=== PATIENT | female | born 1990 | race African-American/Black ===

== ENCOUNTER 2024-11-28 14:48 | Inpatient (IN) | payer MEDICAID, OTHER, SELFPAY ==
[2024-11-28 15:00] VITALS: BP 142/86; BP 156/93; PULSE 75; PULSE 81; RESP 18; TEMP 36.4; O2SAT 98; O2SAT 99; BMI 56.7
--- NOTE | 2024-11-28 15:07 | ED_ITS ---
HPI - General Adult General Chief complaint: Psychiatric Symptoms Stated complaint: SEC 12,SI W/PLAN PER EMS Time Seen by Provider: 11/28/24 15:06 Source: patient and EMS Mode of arrival: EMS Limitations: no limitations History of Present Illness ED Provider: Azul Scott PA-C HPI narrative: Patient is a 34 year old assigned female at with a history of depression and psychiatric hospitalization - the most recent being on 09/13/2024 at [facility] presenting to the emergency department today with depression and suicidal ideation. Patient states that she is feeling more depressed and has plans to kill herself but isn't specific on what they are. Patient denies any other complaints at this time. Related Data Home Medications ?Medication ?Instructions ?Recorded ?Confirmed No Known Home Meds 11/29/24 11/29/24 Allergies Allergy/AdvReac Type Severity Reaction Status Date / Time No Known Allergies Allergy Verified 11/28/24 15:15 Review of Systems 2 Constitutional: Constitutional: Reports as per HPI Eyes: Eyes: Reports as per HPI ENT: Reports as per HPI Cardiovascular: Cardiovascular: Reports as per HPI Respiratory: Respiratory: Reports as per HPI Gastrointestinal: Gastrointestinal: Reports as per HPI Genitourinary: Genitourinary: Reports as per HPI Musculoskeletal: Musculoskeletal: Reports as per HPI Integumentary/Breasts: Skin/Breast: Reports as per HPI Neurologic: Reports as per HPI Psychiatric: Psychiatric: Reports as per HPI Endocrine: Endocrine: Reports as per HPI Hematologic/Lymphatic: Hematologic/Lymphatic: Reports as per HPI Allergic/Immunologic: Allergic/Immunologic: Reports as per HPI [facility] Past Medical History Attestation statement: The following information was validated with the patient. Source: old records reviewed and nursing notes reviewed Social History Social History Household Members: None Housing: Apartment Do you presently have visiting nurse or other home services: No Patient Tobacco Use Status: Never used Tobacco Smoked in Last 30 Days: No e-Cigarette/Vaping Use: Never Used Use of substances other than those prescribed or required for medical reasons: No Have you been hit, kicked, punched, or otherwise hurt by someone within the past year? If so, by whom?: No Do you feel safe in your current relationship?: No Current Relationship Is there a partner from a previous relationship who is making you feel unsafe now?: No Are you made to feel afraid or neglected: No Advance Directives: No Advance Directives Information Provided: No Do you have a plan to hurt others: No Plan Recently lost weight without trying: No How much weight loss: Not applicable Eating poorly because of decreased appetite: No Nutrition screen score: 0 Nutrition Risks: No Nutritional Risk Patient : No : No Poor oral hygiene: No Physical Exam ED Vital Signs: Vital Signs - 24 hr 11/28/24 15:00 Temperature 97.5 F Pulse Rate 81 Respiratory Rate 18 Blood Pressure 156/93 H Pulse Oximetry 99 Oxygen Delivery Method Room Air BMI result Body Mass Index 56.7 Const General: cooperative, no acute distress, alert and awake Nutritional Appearance: well nourished Orientation/consciousness: patient oriented x3 HENMT Head: Yes normal to inspection and Yes atraumatic Ears: hearing grossly normal bilaterally and external ears normal General nose exam: Normal external nose present, no nasal discharge noted and no epistaxis Face and sinus: Yes normal facial exam, No abrasion and No laceration Mouth: Normal oral and palatal mucosa present, no drooling and no muffled voice Eyes General: appearance normal, both eyes and all related structures Periorbital: periorbital findings normal Eyelids: Yes eyelids normal Conjunctivae: conjunctivae normal Pupils: Equal, round and reactive pupils present EOM: EOMs intact bilaterally Neck Neck: Yes normal visual inspection and Yes full ROM Resp Effort & Inspection: normal respiratory effort and able to speak in complete sentences Neuro General: patient oriented x3, moves all extremities and CN's II-XI intact bilaterally Cranial nerves: Yes Equal, round and reactive pupils present Cognition (Neuro): normal cognition Extrem General: Yes normal to inspection, Yes full ROM and Yes capillary refill normal Psych Appearance: grossly normal Mental Status: mental status grossly normal Affect: normal affect Thought content: Suicidality present Course Reevaluation(s) Reevaluation #1: 11/28/2024 Matt Salas 2:52pm: Patient was given Ativan and Benadryl due to her feeling anxious and angry. Patient became, after meds. Reevaluation #2: DR. Davis's progress note, 11/29/2024: 09:30. VSS, no events overnight reported by nursing, under section 12, bed search is underway, continue with physician observation. Reevaluation #3: DR. Davis's progress note, 11/29/2024; Discontinue physician observation now patient is admitted to 5 Time: 13:31 Medications Administered Discontinued Medications Generic Name Dose Route Start Last Admin Trade Name Juan PRN Reason Stop Dose Admin Diphenhydramine HCl 50 mg 11/28/24 22:13 11/28/24 22:29 Diphenhydramine Hcl 25 Mg Capsule PO 11/28/24 22:14 50 mg ONCE ONE Administration Lorazepam 1 mg 11/28/24 18:56 11/28/24 19:38 Lorazepam 1 Mg Tablet PO 11/28/24 18:57 1 mg ONCE ONE Administration Lorazepam 1 mg 11/28/24 22:13 11/28/24 22:29 Lorazepam 1 Mg Tablet PO 11/28/24 22:14 1 mg ONCE ONE Administration Medical Decision Making Medical Decision Making MDM Narrative: Patient is a 34 year old assigned female at with a history of depression and psychiatric hospitalization - the most recent being on 09/13/2024 at [facility] presenting to the emergency department today with depression and suicidal ideation. Patient's physical exam was as noted in the physical exam portion of this note. Patient's blood work is pending. Patient signed out to RACIEL Gutierrez pending lab results and CARE team recommendations. Differential Diagnosis Differential Diagnoses: The differential diagnosis associated with the presentation includes SI Depression Admission/Observation Consideration of admission/observation: Escalation of care including admission/observation considered Patient's disposition will be determined after lab work and CARE team evaluation Lab Data MDM Lab Attestation statement: I reviewed the patient's lab results. My interpretation of these studies and their corresponding values is that they are grossly normal. 11/28/24 17:07 11/28/24 17:07 Labs: Lab Results 11/28/24 11/28/24 Range/Units 15:49 17:07 WBC 9.4 (4.8-10.8) X10*3/uL RBC 4.51 (4.20-5.50) X10*6/uL Hgb 12.5 (12.0-16.0) g/dl Hct 36.0 L (37.0-47.0) % MCV 79.8 L (80.0-98.0) fL MCH 27.7 (27.0-33.0) pg MCHC 34.7 (31.0-35.0) g/dl RDW 12.9 (11.0-16.0) % Plt Count 291 (160-400) X10*3/uL MPV 12.2 (9.4-12.3) fL Immature Gran % (Auto) 0.3 (0.0-0.4) % Neut % (Auto) 68.1 (45-73) % Lymph % (Auto) 22.3 (20-40) % [place] % (Auto) 6.4 (2-11) % Eos % (Auto) 2.6 (0-4) % Baso % (Auto) 0.3 (0-2) % Lymph # (Auto) 2.1 (1.2-4.9) X10*3/uL [place] # (Auto) 0.6 (0.1-1.2) X10*3/uL Eos # (Auto) 0.2 (0.0-0.4) X10*3/uL Baso # (Auto) 0.0 (0.0-0.2) X10*3/uL Abs Immat Gran (auto) 0.03 (0.00-0.03) X10*3/uL Absolute Neuts (auto) 6.4 (2.0-8.3) x10*3/uL Absolute Nucleated RBC 0.000 (0.0-0.012) X10*3/uL Nucleated RBC % (auto) 0.0 (0.0-0.2) /100WBC Sodium 139 (135-145) mmol/L Potassium 4.0 (3.3-5.1) mmol/L Chloride 109 H (96-108) mmol/L Carbon Dioxide 21 L (22-29) mmol/L Anion Gap 13 (12-20) BUN 8 L (9-16) mg/dL Creatinine 0.84 (0.5-1.4) mg/dL Estim Creat Clear Calc 125.0 Estimated GFR > 60 Random Glucose 83 (60-115) mg/dL Calcium 9.2 (8.4-10.2) mg/dL Total Bilirubin 0.5 (0.0-1.0) mg/dL AST 31 (5-31) U/L ALT 16 (0-31) U/L Alkaline Phosphatase 76 (39-117) U/L Total Protein 7.8 (6.5-8.0) g/dL Albumin 4.4 (3.5-5.0) g/dL Urine Color Yellow Urine Appearance Clear Urine pH 6.0 (5.0-9.0) Ur Specific [place] 1.010 (1.005-1.025) Urine Protein Negative (Neg-Trace) mg/dL Urine Glucose (UA) Negative (Negative) mg/dL Urine Ketones Negative (Negative) mg/dL Urine Blood Negative (Negative) Urine Nitrite Negative (Negative) Ur Leukocyte Esterase Small (1+) H (Negative) Urine RBC 0-2 (0-2) /HPF Urine WBC 6-10 H (0-5) /HPF Ur Squamous Epith Cells 6-10 (0-2) /HPF Urine Bacteria None Seen (None Seen) Hyaline Casts 0-2 (0-2) /LPF Urine Test NEGATIVE (NEGATIVE) Salicylates < 5.0 L (15-30) mg/dL Urine Opiates Screen Not Detected (Not Detect) Ur Buprenorphine Scrn Not Detected (Not Detect) ng/mL Ur Oxycodone Screen Not Detected (Not Detect) ng/mL Urine Methadone Screen Not Detected (Not Detect) ng/mL Urine Fentanyl Screen Not Detected (Not Detect) Acetaminophen < 3 (<30) mcg/mL Ur Barbiturates Screen Not Detected (Not Detect) Ur Phencyclidine Scrn Not Detected (Not Detect) Ur Amphetamines Screen Not Detected (Not Detect) U Benzodiazepines Scrn Not Detected (Not Detect) Urine Cocaine Screen Not Detected (Not Detect) U Marijuana (THC) Screen Not Detected (Not Detect) Ethyl Alcohol 11 mg/dL Independent Historian Clinical information obtained from an independent historian. History obtained from or confirmed by: EMS (EMS provided additional history and confirmed the history provided by the patient. ) Discharge Plan Discharge Clinical Impression: Depression Patient Disposition: Admitted As Inpatient Interventions: [place]-Suicide Risk Severity Scale Last Done: 11/29/24 16:00 Admission Worksheet (ED) Last Done: 11/29/24 13:28 Discharge Date/Time: 11/29/24 13:29
--- NOTE | 2024-11-28 15:20 | MHC.EDTECH ---
pt BIBA. Tech and security present in family waiting room. Patient changed over and belongings searched by security. Pt tearful but cooperative. Belongings secured in Locker 3
[2024-11-28 16:06] LABS: Appearance Urine Clear; Glucose Urine UA Negative (Negative); PH 6.0 (5.0-9.0); Specific Gravity - Urine 1.010 (1.005-1.025); UMIC TRIGGER UA YES
[2024-11-28 16:15] LABS: Cannabinoid Screen Urine Not Detected (Not Detect)
[2024-11-28 16:24] LABS: UPreg QC Valid YES
[2024-11-28 17:13] LABS: MANUAL DIFF FLAG NO
[2024-11-28 17:15] LABS: Hematocrit 36.0 % (37.0-47.0); Hemoglobin 12.5 g/dl (12.0-16.0); Imm Gran Abs Auto 0.03 X10*3/uL (0.00-0.03); Imm Gran Pct Auto 0.3 % (0.0-0.4); Lymphocytes Absolute Auto 2.1 X10*3/uL (1.2-4.9); Mean Corpuscular HGB Conc 34.7 g/dl (31.0-35.0); Mean Corpuscular Hemoglobin 27.7 pg (27.0-33.0); Mean Corpuscular Volume 79.8 fL (80.0-98.0); NRBC Abs Auto 0.000 X10*3/uL (0.0-0.012); NRBC Pct Auto 0.0 /100WBC (0.0-0.2); Platelet Count 291 X10*3/uL (160-400); Red Blood Count 4.51 X10*6/uL (4.20-5.50); White Blood Count 9.4 X10*3/uL (4.8-10.8)
[2024-11-28 17:31] LABS: Alanine Aminotransferase 16 U/L (0-31); Albumin Level 4.4 g/dL (3.5-5.0); Alkaline Phosphatase 76 U/L (39-117); Anion Gap 13 (12-20); Aspartate Amino Transferase 31 U/L (5-31); Blood Urea Nitrogen 8 mg/dL (9-16); Calcium 9.2 mg/dL (8.4-10.2); Carbon Dioxide 21 mmol/L (22-29); Chloride 109 mmol/L (96-108); Creatinine Clr Calc Pharmacy 125.0; Estimated Glomerular Filt Rate > 60; Potassium 4.0 mmol/L (3.3-5.1); Sodium 139 mmol/L (135-145); Total Protein 7.8 g/dL (6.5-8.0)
[2024-11-28 17:35] LABS: Acetaminophen LAB < 3 mcg/mL (<30); Salicylate < 5.0 mg/dL (15-30)
--- NOTE | 2024-11-28 18:00 | MHC.CARE ---
Pt will be adult IPLOC, Section 12a in chart for safety.
--- OUTSIDE RECORDS SUMMARY | 2024-11-28 18:51 | XMS_ITS | Clinical Summary ---
Author Organization [employer] Address [address] [place] [address] Care Team Providers Care Hide Trimmer Name Role Phone Unavailable Primary Care Provider Unavailabl e Encounters Date Type Department Care Team Description 11/17/2024 Population Health Risk Score [facility] ([facility]) Department [address] [id number] Provider, Population Health Generic from Last 3 Months Social History Tobacco Use Types Packs/Day Years Used Date Smoking Tobacco: Never Assessed Comments Unknown Sex and Gender Information Value Date Recorded Sex Assigned at Not on file Legal Sex Female 9:33 PM EDT Gender Identity Not on file Sexual Orientation Not on file Plan of Treatment Health Maintenance Due Date Last Done Comments Depression Screening 1991 HIV Screening 1991 SDOH Screening 1991 Disability Screening 1991 Alcohol/Substance Use Screening 2003 Tobacco Screening 2003 Family Planning (PISQ) 2006 HPV Vaccines (1 - 3-dose series) 2006 Hepatitis C Screening 2009 Hepatitis B Vaccines (1 of 3 - 19+ 3-dose series) 2010 Pap Smear 01/12/2012 Cervical Cancer Screening 2021 HPV/Cotest 2021 COVID-19 Vaccine (1 - 2023-2 5 season) 2024 Influenza Vaccine (#1) 2024 DTaP/Tdap/Td Vaccines (2 - T d or Tdap) 08/13/2025 08/14/2015 Zoster Vaccines (1 of 2) 2041 RSV Patients and Pa tients Aged 60 years or older (1 - 1-dose 75+ series) 2066 HIB Vaccines Aged Out No longer eligi ble based on patient's age to complete this topic Hepatitis A Vaccines Aged Out No long er eligible based on patient's age to complete this topic IPV Vaccines Aged Out No longer eligi ble based on patient's age to complete this topic Meningococcal B Vaccine Aged Out No l onger eligible based on patient's age to complete this topic Meningococcal Vaccine Aged Out No enrico kevin eligible based on patient's age to complete this topic Pneumococcal Vaccine: Pediat rics (0 to 5 Years) and At-Risk Patients (6 to 49) Years Aged Out No longer eligi ble based on patient's age to complete this topic RSV under 20 months Aged Out No longe r eligible based on patient's age to complete this topic Rotavirus Vaccines Aged Out No longer eligible based on patient's age to complete this topic
--- NOTE | 2024-11-28 20:58 | PC.NURSE ---
Assumed care of pt at 1900. PT was found angry in distress reporting she wanted to hurt herself . PT was given her PRN medication and was deescalated with calming techniques and given headphones, pt reported that the music helped calm herself down. PT admitted to denied HI. Plan for bed search in progress.
--- NOTE | 2024-11-28 22:33 | PC.NURSE ---
PT reported anger and feelings of wanting to hurt things notified provider, PRN meds administered per MAR. PT was calm and cooperative and stated feeling angry still.
--- NOTE | 2024-11-29 08:13 | ECG_ITS ---
Test Reason : qtc check Blood Pressure : */* mmHG Vent. Rate : 71 BPM Atrial Rate : 71 BPM P-R Int : 166 ms QRS Dur : 70 ms QT Int : 382 ms P-R-T Axes : 58 46 34 degrees QTcB Int : 415 ms Normal sinus rhythm Normal ECG No previous ECGs available Referred By: Carol Swanson Electronically Signed By: Chuck Fox
--- NOTE | 2024-11-29 10:21 | MHC.EDTECH ---
patient refused EKG at this time
[2024-11-29 13:25] VITALS: BP 164/84; PULSE 91; RESP 16; TEMP 36.7; O2SAT 99
[2024-11-29 14:24] VITALS: BP 171/104; PULSE 104; RESP 18; TEMP 36.4; O2SAT 97
[2024-11-29 14:25] VITALS: BMI 51.0
--- NOTE | 2024-11-29 16:31 | PC.NURSE ---
Pt declined to receive the flu shot
--- NOTE | 2024-11-29 17:41 | PC.ADMIT ---
Patient was admitted from the ED POD on a 12b for tx of Unspecified Depressive Disorder. Pt was admitted after making suicidal statements to a international bank manager, when being asked how she was. Pt reported SI with a plan and feelings of hopelessness secondary to the loss of her job, along with other life stressors. Upon admission, pt's speech is monotone, though she is pleasant and cooperative with the admission assessment, with clear and linear thought process. She reports her mood is depressed but is able at times to make jokes and laugh w/staff. Per report from ED nurse, (along with the pt herself), she has a hx of low frustration tolerance. She continues to endorse SI, denies any current plan but sates Honestly being here is just prolonging my plans. I'm sorry because maybe if I came here sooner I'd be more receptive to the help, but I'm not changing my mind . Pt reports trauma r/t recent inpatient stay at another hospital (declined to elaborate fully), also reports hx of SI attempts but they were never successful . Denies any issues with appetite but occasional difficulty with sleeping at night. She has no current outpatient providers, insurance or medications. Her tox screen was negative, BAL 11. Skin check was unremarkable, placed on 15 minute checks.
--- NOTE | 2024-11-29 18:27 | PC.NURSE ---
Pt approached the nurses station this evening reporting intensifying thoughts of wanting to hurt herself. TW asked the pt what she needed from staff. PT initially shrugged. Declined to talk with staff, declined to sit in the milieu with peers and to write down feelings. Offered an accepted headphones. call center representative Provider Cesario Miller was notified and asked via tiger text to place pt on 5 minute checks.
--- NOTE | 2024-11-29 18:39 | P.HPPS_ITS ---
HPI Date of Service: 11/29/24 Chief Complaint: Depression, SI Sources of Information: patient interviewed, chart reviewed and crisis/core team assessment reviewed HPI Subjective Notes: Section 12B Narrative: Ms. Beverly is a 34 yo SF with h/o depression, anxiety, and multiple prior psychiatric admissions who was brought to the ED by ambulance after endorsing SI with a plan, subsequently admitted to for safety and stabilization. Pt reports a life long h/o depression. She was hospitalized 2x at [facility] from July-August for depression, SI and HI after she had major stressors with her health insurance (states that the words Mayi Zhaopin and [facility] are major triggers for her). She states that her experience at [facility] was very stressful and further traumatized her. She reports that October was a good month since she attended 3 concerts, which are very calming for her. 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 She had worked there x 5 yrs, got no warning and received 2 wks pay as a severance package. She thought her employer was retaliating against her for using FMLA for the [facility] hospitalizations but found out that other co-workers were also laid off. She is very stressed about her finances and is already behind on rent. She went to an [employer] to take out monehy to try to buy a new car with the severence money but the machine ate her card and she had to pay for another day of her rental car. When the blood bank laboratory professional asked how she was, she said I m suicidal and the police were called. Pt reports that she loves her cat, which kept her from harming herself. -Pt endorses chronic SI. Psychiatric ROS: Endorses signif trauma hx + flashbacks, anger outburts, having multiple triggers, hypervigilance, avoidance behaviors, nightmares, poor sleep, chronic depression, nightmares Avril screen- did not describe discrete mood episodes suggestive of avril Perception: She thinks she hears people in the house when she's alone and in a vulnerable situation, bernard in the shower. She has seen and heard her cat. She hears her own voice in her head saying you're too stupid to and other derogatory comments. She used to want to kill that bitch but decided to befriend her and it's less bothersome now. She hears the voices of other people that she made up in her head, which is usually calming. Good appetite Sleep- has been better than usual lately. Has woken up choking (attributes to nightmares) and w/ dry mouth. Denies ever having a sleep study Meds- Pt reports that she is currently only taking Ibuprofen Pt agreed to sign a CV but stated that she wanted to sign a 3-day right after, so t/w didn't have her sign the CV and kept her on the 12B Past Psychiatric History: No current therapist or psychiatrist Prior Med Trials: Seroquel- excessive daytime sedation, trazodone, anxiety med (can't recall), Prozac- rx'd for anger but made her more angry h/o multiple inpatient psychiatric admissions -Endorses multiple self harming beahviors and h/o suicide attempts by cutting, scratching, slamming her head into the wall, hitting herself with objects, punching/stabbing/choking herself, and sticking objects into sockets. She used to wet the bed and tried to harm herself by sitting in the acidic urine. -Pt denies HI but does have thoughts to harm others who have harmed her Medical Evaluation Reviewed: Hospitalist Louis Pending [facility] Narrative: Denies Family History: Sister- h/o inpt psychiatric admission. Mother a little bipolar , possible MDD and schizophrenia Social History: Lives at home w/ her cat. Single, no children. Substance History: Drinks alcohol rarely. Denies smoking cigarettes, MJ or abusing any illicit or rx drugs Trauma History: Endorses h/o trauma, did not go into details Diagnostics Vital Signs (24Hr): Vital Signs - 24 hr 11/29/24 13:25 11/29/24 14:24 Temperature 98.1 F 97.6 F Pulse Rate 91 104 H Respiratory Rate 16 18 Blood Pressure 164/84 H 171/104 H Pulse Oximetry 99 97 Oxygen Delivery Method Room Air Room Air BMI result Body Mass Index 51.0 Labs 11/28/24 17:07 11/28/24 17:07 Labs: Laboratory Results - last 48 hr 11/28/24 11/28/24 15:49 17:07 WBC 9.4 RBC 4.51 Hgb 12.5 Hct 36.0 L MCV 79.8 L MCH 27.7 MCHC 34.7 RDW 12.9 Plt Count 291 MPV 12.2 Immature Gran % (Auto) 0.3 Neut % (Auto) 68.1 Lymph % (Auto) 22.3 [place] % (Auto) 6.4 Eos % (Auto) 2.6 Baso % (Auto) 0.3 Lymph # (Auto) 2.1 [place] # (Auto) 0.6 Eos # (Auto) 0.2 Baso # (Auto) 0.0 Abs Immat Gran (auto) 0.03 Absolute Neuts (auto) 6.4 Absolute Nucleated RBC 0.000 Nucleated RBC % (auto) 0.0 Sodium 139 Potassium 4.0 Chloride 109 H Carbon Dioxide 21 L Anion Gap 13 BUN 8 L Creatinine 0.84 Estim Creat Clear Calc 125.0 Estimated GFR > 60 Random Glucose 83 Calcium 9.2 Total Bilirubin 0.5 AST 31 ALT 16 Alkaline Phosphatase 76 Total Protein 7.8 Albumin 4.4 Urine Color Yellow Urine Appearance Clear Urine pH 6.0 Ur Specific [place] 1.010 Urine Protein Negative Urine Glucose (UA) Negative Urine Ketones Negative Urine Blood Negative Urine Nitrite Negative Ur Leukocyte Esterase Small (1+) H Urine RBC 0-2 Urine WBC 6-10 H Ur Squamous Epith Cells 6-10 Urine Bacteria None Seen Hyaline Casts 0-2 Urine Test NEGATIVE Salicylates < 5.0 L Urine Opiates Screen Not Detected Ur Buprenorphine Scrn Not Detected Ur Oxycodone Screen Not Detected Urine Methadone Screen Not Detected Urine Fentanyl Screen Not Detected Acetaminophen < 3 Ur Barbiturates Screen Not Detected Ur Phencyclidine Scrn Not Detected Ur Amphetamines Screen Not Detected U Benzodiazepines Scrn Not Detected Urine Cocaine Screen Not Detected U Marijuana (THC) Screen Not Detected Ethyl Alcohol 11 EKG EKG: reviewed Meds/Allergies Meds Home Medications ?Medication ?Instructions ?Recorded ?Confirmed ?Type No Known Home Meds 11/29/24 11/29/24 Hi story Allergies Allergies Allergy/AdvReac Type Severity Reaction Status Date / Time No Known Allergies Allergy Verified 11/28/24 15:15 Mental Status Exam Mental Status Exam Narrative: Appearance: Wearing hospital kathy. Grooming/hygiene wnl. Good eye contact Attitude:Cooperative Speech: Excessive but redirectable. Fluent and otherwise wnl Motor activity: Calm and without any tics, tremors or dyskinesias. Steady gait Mood: as noted above Affect: appropriate, reactive Thought process: Logical, generally goal directed. perseverated on issues at [facility] Thought content: endorses SI without current plan/intent. Endorses thoughts to harm people who have harmed her. Denies HI Perception: Denies AH/VH and does not appear to respond to internal stimuli Alert/oriented in all spheres Cognition grossly intact Insight: intact Judgment: fair Assessment & Plan Assessment & Plan (1) MDD (major depressive disorder), recurrent episode, moderate: Status: Acute Code(s): F33.1 - Major depressive disorder, recurrent, moderate (2) PTSD (post-traumatic stress disorder): Status: Acute Code(s): F43.10 - Post-traumatic stress disorder, unspecified Plan Ms. Beverly is a 34 yo SF with h/o depression, anxiety, and multiple prior psychiatric admissions who was brought to the ED by ambulance after endorsing SI with a plan, subsequently admitted to for safety and stabilization. T/W reviewed my impression that pt has PTSD, which can be associated with persistent depression, difficulty in relationships/trusting others, hypervigilance, and mood lability (including angry outbursts). She presents w/ some BPD traits as well. Plan: Admit to for safety and stabilization Legal Status: 12B- pt was going to sign CV but wanted to sign 3-day immediately after. 12B will 12/04 Request admission medical consult from hospitalist 15 min safety checks Vital signs per unit standard Milieu therapy Meds- Pt is agreeable w/ trying risperidone off-label to target anxiety/agitation/anger- 0.5 mg qhs, 0.25 mg bid prn for anxiety/mild agitation, 1 mg bid prn for severe agitation. Will add benadryl prn for EPS Will start clonidine 0.1 mg off-label for PTSD-related hyperarousal sx, including nightmares. Trazodone 50-100 mg qhs prn for insomnia Reviewed med r/b/a Patient educated on: diagnosis, medication risk/benefits and therapeutic strategies Informed Consent: understands Reason for continued inpatient stay Substantial Risk for: harm to self and med/psych decompensation Statement Statement: I have reviewed the history and physical and performed a pertinent examination on my patient. No changes have occurred unless specified. If the History and Physical was not performed prior to admission, the Hospitalist's service will be consulted for completing the admission physical. Time Spent With Patient Time: Total time managing care of this patient today __80__ minutes.
[2024-11-29 19:16] VITALS: BP 140/100; PULSE 105; RESP 18; TEMP 36.2; O2SAT 99
[2024-11-29 20:00] VITALS: BP 150/61; PULSE 111; RESP 16; TEMP 36.6; O2SAT 97
[2024-11-29 20:18] VITALS: BP 150/61
[2024-11-30 07:00] VITALS: BMI 51.0
--- NOTE | 2024-11-30 09:11 | HO.PM.IMCN ---
History of Present Illness Data of Consult Service Date: 11/30/24 Primary Care Provider: [facility] Reason for consult: Medical consult 34-year-old female with a past medical history of MDD, PTSD and previous psychiatric hospitalizations to the ED with increased depression and suicidal ideation with no plan. CBC was without leukocytosis or anemia. No electrolyte imbalances or evidence of liver kidney injury. Urine was negative for infection, tox screen negative. No EtOH. On exam she denies any medical concerns. Her blood pressure is elevated. Review of Systems Review of Systems: Denies any shortness of breath, chest pain, palpitations, dizziness, lightheadedness, headaches, dysuria, abdominal pain or discomfort, nausea, vomiting or diarrhea. Denies chills or fever. [facility] Social History Household Members: None Housing: Apartment Do you presently have visiting nurse or other home services: No Patient Tobacco Use Status: Never used Tobacco Smoked in Last 30 Days: No e-Cigarette/Vaping Use: Never Used Use of substances other than those prescribed or required for medical reasons: No Currently Displaying Signs/Symptoms of Drug Intoxication Withdrawal: No Have you been hit, kicked, punched, or otherwise hurt by someone within the past year? If so, by whom?: No Do you feel safe in your current relationship?: No Current Relationship Is there a partner from a previous relationship who is making you feel unsafe now?: No Are you made to feel afraid or neglected: No Advance Directives: No Advance Directives Information Provided: No Do you have thoughts of harming others: None Do you have a plan to hurt others: No Plan Recently lost weight without trying: No How much weight loss: Not applicable Eating poorly because of decreased appetite: No Nutrition screen score: 0 Nutrition Risks: No Nutritional Risk Patient : No : No Poor oral hygiene: No service: No Sexual orientation: Don't Know Meds Allergies Allergy/AdvReac Type Severity Reaction Status Date / Time No Known Allergies Allergy Verified 11/28/24 15:15 Active Medications: Current Medications Acetaminophen (Acetaminophen 325 Mg Tablet) 650 mg PO Q6H PRN PRN Reason: Headache/Pain, Scale 1-10 Al Hydroxide/Mg Hydroxide (Magnesium Hydrox/Alum Hydrox 30 Ml Oral.Susp) 30 ml PO Q6H PRN PRN Reason: Heartburn/Nausea Clonidine HCl (Clonidine Hcl 0.1 Mg Tablet) 0.1 mg PO BEDTIME VIC; Protocol Last Admin: 11/29/24 20:18 Dose: 0.1 mg Diphenhydramine HCl (Diphenhydramine Hcl 25 Mg Capsule) 50 mg PO Q6H PRN PRN Reason: Extrapyramidal Effects Last Admin: 11/29/24 20:17 Dose: 50 mg Hydroxyzine HCl (Hydroxyzine Hcl 25 Mg Tablet) 25 mg PO Q6H PRN PRN Reason: mild anxiety Last Admin: 11/29/24 21:46 Dose: 25 mg Magnesium Hydroxide (Milk Of Magnesia 30 Ml Oral.Susp) 30 ml PO DAILY PRN PRN Reason: Constipation Nicotine Polacrilex (Nicotine Polacrilex 2 Mg Gum) 2 mg BUCCAL Q2H PRN PRN Reason: Nicotine Cravings Risperidone (Risperidone 0.5 Mg Tablet) 0.5 mg PO BEDTIME VIC Last Admin: 11/29/24 20:20 Dose: 0.5 mg Risperidone (Risperidone 0.25 Mg Tablet) 0.25 mg PO TID PRN PRN Reason: anxiety, mild agitation Risperidone (Risperidone 1 Mg Tablet) 1 mg PO BID PRN PRN Reason: severe agitation Last Admin: 11/29/24 20:19 Dose: 1 mg Trazodone HCl (Trazodone Hcl 50 Mg Tablet) 50 mg PO BEDTIME MRX1 PRN PRN Reason: Insomnia Last Admin: 11/29/24 21:46 Dose: 50 mg Home Medications ?Medication ?Instructions ?Recorded ?Confirmed ?Last Taken ?Type No Known Home Meds 11/29/24 11/29/24 Unknown History Physical Exam Vital Signs and Narrative: Vital Signs: Last Vital Signs Temp 97.8 F 11/29/24 20:00 Pulse 111 H 11/29/24 20:00 Resp 16 11/29/24 20:00 BP 150/61 H 11/29/24 20:18 Pulse Ox 97 11/29/24 20:00 O2 Del Method Room Air 11/29/24 20:00 BMI result Body Mass Index 51.0 CONST: Alert and oriented, in NAD. Well nourished HEENT: Normocephalic, atraumatic, MMM, Eyes clear, Neck supple RESP: Lungs clear, RRR even and regular HEART:,RRR, S1, S2. No edema GI:Abdomen Soft NT, ND. + BS times four :Deferred SKIN: Warm dry and intact, no visible lesions or rashes NEURO:CN II-XII Intact bilaterally, Sensation intact. Speech clear PSYCH: Normal affect Results Labs 11/28/24 17:07 11/28/24 17:07 Assessment and Plan (1) Morbid obesity with body mass index (BMI) greater than or equal to 50: Status: Acute (2) HTN (hypertension): Status: Acute Plan 34-year-old female with a past medical history of morbid obesity, major depressive disorder, PTSD presented to the ED with suicidal ideation. Admitted for stabilization. Morbid obesity/major depressive disorder Treatment per psychiatric team Hypertension Patient with several elevated blood pressures Will start hydrochlorothiazide 12.5 mg daily Follow up BMP Wednesday Morbid obesity Encouraged diet and exercise Thank you for allowing me to participate in the care of this patient. Will follow with you, please notify medical provider with any changes in condition or concerns.
[2024-11-30 10:30] VITALS: BP 152/100; PULSE 107; RESP 17; TEMP 36.4; O2SAT 100
[2024-11-30 12:31] VITALS: BP 140/101
[2024-11-30 19:12] VITALS: BP 134/90; PULSE 82; RESP 16; TEMP 36.2; O2SAT 100
--- NOTE | 2024-11-30 19:50 | P.PNPSP_ITS ---
Subjective Subjective Date of Service: 11/30/24 Reason For Visit: Depression, SI Interim History: chart reviewed, case discussed with tx team Pt was placed on 5 min safety checks last night after telling her nurse that she had increasing thoughts of self harm. She did not engage in any self harming behavior. She has been hypertensive and was started on HCTZ by the hospitalist today. T/W discussed the HTN w/ pt and she said she hoped she would from the high BP; however she agreed w/ treating it. When asked about SI, pt asked are you kidding? ... I'm chronically suicidal . She reports that she's angry here since you picked me up and brought me here and she needs to care for her cat. She reports that someone can come to the house to feed the cat tonight but she needs to give them her keys. She does report sleeping well last night, no nightmares and decreased anxiety. She denies any issues w/ the risperidone or clonidine (both new meds). Mental Status Exam Mental Status Exam Narrative: Appearance: Grooming/hygiene wnl. Generally avoidant eye contact. Attitude: Cooperative with interview. help seeking/rejecting Speech: Fluent and wnl in regard to volume, tone, prosody Motor activity: Calm and without any tics, tremors or dyskinesias. Steady gait Mood: as noted above Affect: appropriate, constricted, irritable during interview. Brighter affect in the milieu Thought process: goal directed and without evidence of formal thought disorder Thought content: as noted above. Perception: Denies AH/VH and does not appear to respond to internal stimuli Alert/oriented in all spheres Insight: fair Judgment: fair Diagnostics Vital Signs (24Hr): Vital Signs - 24 hr 11/29/24 20:00 11/29/24 20:18 11/30/24 10:30 Temperature 97.8 F 97.5 F Pulse Rate 111 H 107 H Respiratory Rate 16 17 Blood Pressure 150/61 H 150/61 H 152/100 H Pulse Oximetry 97 100 Oxygen Delivery Method Room Air Room Air 11/30/24 12:31 Temperature Pulse Rate Respiratory Rate Blood Pressure 140/101 H Pulse Oximetry Oxygen Delivery Method BMI result Body Mass Index 51.0 Labs 11/28/24 17:07 11/28/24 17:07 Assessment & Plan Assessment & Plan (1) MDD (major depressive disorder), recurrent episode, moderate: Status: Acute Code(s): F33.1 - Major depressive disorder, recurrent, moderate (2) PTSD (post-traumatic stress disorder): Status: Acute Code(s): F43.10 - Post-traumatic stress disorder, unspecified (3) HTN (hypertension): Status: Acute Code(s): I10 - Essential (primary) hypertension Plan Ms. Beverly is a 34 yo SF with h/o depression, anxiety, and multiple prior psychiatric admissions who was brought to the ED by ambulance after endorsing SI with a plan, subsequently admitted to for safety and stabilization. Plan: Admit to M3 for safety and stabilization Legal Status: 12B- pt was going to sign CV but wanted to sign 3-day immediately after. will 12/04 Request admission medical consult from hospitalist 15 min safety checks Vital signs per unit standard Milieu therapy Meds- Pt is agreeable w/ trying risperidone off-label to target anxiety/agitation/anger- 0.5 mg qhs, 0.25 mg bid prn for anxiety/mild agitation, 1 mg bid prn for severe agitation. Will add benadryl prn for EPS Will start clonidine 0.1 mg off-label for PTSD-related hyperarousal sx, including nightmares. Trazodone 50-100 mg qhs prn for insomnia Reviewed med r/b/a 11/30: Irritable, help seeking/rejecting but reported improved sleep/anxiety and denied nightmares last night after starting risperidone and clonidine. Denies med SE. Continue current med regimen/tx plan. Switched to 5 min safety checks due to inc'd thoughts of self harm yesterday but has not engaged in any self harming behaviors. On , which expires 12/04 Patient educated on: medication risk/benefits Reason for contiued partial hosp. stay Substantial Risk for: harm to self and med/psych decompensation Certification I certify that partial hospital treatment is medically necessary due to the symptoms and problems resulting from the patient's mental illness and the failure to treat the patient at the partial hospital level of care would likely result in the patient requiring inpatient psychiatric care which could not be prevented at a less intensive level of care. Total time managing care of this patient today __25__ minutes. Discharge Plan Discharge Referrals: [facility] [Primary Care Provider, Primary Care] - 1 Week Discharge Medications: No Action No Known Home Meds Rx Instructions: states has not taken meds in years Print Language: Bulgarian
--- NOTE | 2024-11-30 20:05 | HO.PSYCHPN ---
Subjective Subjective Date of Service: 11/30/24 Reason For Visit: Depression, SI Subjective Notes: Section 12B Interim History: chart reviewed, case discussed with tx team Pt was placed on 5 min safety checks last night after telling her nurse that she had increasing thoughts of self harm. She did not engage in any self harming behavior. She has been hypertensive and was started on HCTZ by the hospitalist today. T/W discussed the HTN w/ pt and she said she hoped she would from the high BP; however she agreed w/ treating it. When asked about SI, pt asked are you kidding? ... I'm chronically suicidal . She reports that she's angry here since you picked me up and brought me here and she needs to care for her cat. She reports that someone can come to the house to feed the cat tonight but she needs to give them her keys. She does report sleeping well last night, no nightmares and decreased anxiety. She denies any issues w/ the risperidone or clonidine (both new meds). Mental Status Exam Mental Status Exam Narrative: Appearance: Grooming/hygiene wnl. Generally avoidant eye contact. Attitude: Cooperative with interview. help seeking/rejecting Speech: Fluent and wnl in regard to volume, tone, prosody Motor activity: Calm and without any tics, tremors or dyskinesias. Steady gait Mood: as noted above Affect: appropriate, constricted, irritable during interview. Brighter affect in the milieu Thought process: goal directed and without evidence of formal thought disorder Thought content: as noted above. Perception: Denies AH/VH and does not appear to respond to internal stimuli Alert/oriented in all spheres Insight: fair Diagnostics Vital Signs (24Hr): Vital Signs - 24 hr 11/29/24 20:18 11/30/24 10:30 11/30/24 12:31 Temperature 97.5 F Pulse Rate 107 H Respiratory Rate 17 Blood Pressure 150/61 H 152/100 H 140/101 H Pulse Oximetry 100 Oxygen Delivery Method Room Air 11/30/24 19:12 Temperature 97.2 F Pulse Rate 82 Respiratory Rate 16 Blood Pressure 134/90 H Pulse Oximetry 100 Oxygen Delivery Method Room Air BMI result Body Mass Index 51.0 Labs 11/28/24 17:07 11/28/24 17:07 Medications Medications Current Medications Acetaminophen (Acetaminophen 325 Mg Tablet) 650 mg PO Q6H PRN PRN Reason: Headache/Pain, Scale 1-10 Al Hydroxide/Mg Hydroxide (Magnesium Hydrox/Alum Hydrox 30 Ml Oral.Susp) 30 ml PO Q6H PRN PRN Reason: Heartburn/Nausea Clonidine HCl (Clonidine Hcl 0.1 Mg Tablet) 0.1 mg PO BEDTIME VIC; Protocol Last Admin: 11/29/24 20:18 Dose: 0.1 mg Diphenhydramine HCl (Diphenhydramine Hcl 25 Mg Capsule) 50 mg PO Q6H PRN PRN Reason: Extrapyramidal Effects Last Admin: 11/29/24 20:17 Dose: 50 mg Hydrochlorothiazide (Hydrochlorothiazide 12.5 Mg Tablet) 12.5 mg PO DAILY VIC; Protocol Last Admin: 11/30/24 12:31 Dose: 12.5 mg Hydroxyzine HCl (Hydroxyzine Hcl 25 Mg Tablet) 25 mg PO Q6H PRN PRN Reason: mild anxiety Last Admin: 11/29/24 21:46 Dose: 25 mg Magnesium Hydroxide (Milk Of Magnesia 30 Ml Oral.Susp) 30 ml PO DAILY PRN PRN Reason: Constipation Nicotine Polacrilex (Nicotine Polacrilex 2 Mg Gum) 2 mg BUCCAL Q2H PRN PRN Reason: Nicotine Cravings Risperidone (Risperidone 0.5 Mg Tablet) 0.5 mg PO BEDTIME VIC Last Admin: 11/29/24 20:20 Dose: 0.5 mg Risperidone (Risperidone 0.25 Mg Tablet) 0.25 mg PO TID PRN PRN Reason: anxiety, mild agitation Risperidone (Risperidone 1 Mg Tablet) 1 mg PO BID PRN PRN Reason: severe agitation Last Admin: 11/29/24 20:19 Dose: 1 mg Trazodone HCl (Trazodone Hcl 50 Mg Tablet) 50 mg PO BEDTIME MRX1 PRN PRN Reason: Insomnia Last Admin: 11/29/24 21:46 Dose: 50 mg Allergies Allergies Allergy/AdvReac Type Severity Reaction Status Date / Time No Known Allergies Allergy Verified 11/28/24 15:15 Assessment & Plan Assessment & Plan (1) MDD (major depressive disorder), recurrent episode, moderate: Status: Acute Code(s): F33.1 - Major depressive disorder, recurrent, moderate (2) PTSD (post-traumatic stress disorder): Status: Acute Code(s): F43.10 - Post-traumatic stress disorder, unspecified (3) HTN (hypertension): Status: Acute Code(s): I10 - Essential (primary) hypertension Plan Ms. Beverly is a 34 yo SF with h/o depression, anxiety, and multiple prior psychiatric admissions who was brought to the ED by ambulance after endorsing SI with a plan, subsequently admitted to M3 for safety and stabilization. Plan: Admit to M3 for safety and stabilization Legal Status: 12B- pt was going to sign CV but wanted to sign 3-day immediately after. 12B will 12/04 Request admission medical consult from hospitalist 15 min safety checks Vital signs per unit standard Milieu therapy Meds- Pt is agreeable w/ trying risperidone off-label to target anxiety/agitation/anger- 0.5 mg qhs, 0.25 mg bid prn for anxiety/mild agitation, 1 mg bid prn for severe agitation. Will add benadryl prn for EPS Will start clonidine 0.1 mg off-label for PTSD-related hyperarousal sx, including nightmares. Trazodone 50-100 mg qhs prn for insomnia Reviewed med r/b/a 11/30: Irritable, help seeking/rejecting but reported improved sleep/anxiety and denied nightmares last night after starting risperidone and clonidine. Denies med SE. Continue current med regimen/tx plan. Switched to 5 min safety checks due to inc'd thoughts of self harm yesterday but has not engaged in any self harming behaviors. On , which expires 12/04 Patient educated on: medication risk/benefits Informed Consent: understands Reason for continued inpatient stay Substantial Risk for: harm to self and med/psych decompensation Time Spent With Patient Time: Total time managing care of this patient today _25___ minutes.
[2024-11-30 21:03] VITALS: BP 140/91
[2024-12-01 11:08] VITALS: BP 107/53; PULSE 79; RESP 14; TEMP 36.7; O2SAT 94
--- NOTE | 2024-12-01 16:33 | P.PNPSI_ITS ---
Subjective Subjective Date of Service: 12/01/24 Reason For Visit: Depression, SI Subjective Notes: Section 12B Interim History: Pt started her period today and is experiencing bad cramps, nausea, dizziness, heavy bleeding and fatigue. She notes that PMS likely explains why she's been more angry lately. She tends to have significant anger/low frustration tolerance starting a day or 2 before her period that subsides a few days after her period starts. She used to have to call out of work for the first day of her period since the sx were so severe. She may have seen a motor vehicle salesperson 2x. Never dx'd with endometriosis, PCOS or other online content developer condition. She thinks her apprentice embalmer recommended an OCP to manage the PMS sx but she doesn't think she took it since her mom didn't want her to be on control. She's willing to try it. Denies h/o smoking. Took at least one SSRI (prozac) for anger in the past but people around her felt like it made her more angry. Hasn't tried gabapentin. She reports that she takes 1000 mg of ibuprofen 4x/day x 1-2 days at home but doesn't exceed the limit on the bottle, along w/ tylenol for cramping. Pt's sister will molded goods spot picker her house see later this afternoon so she can care for pt's cat, Alia. She is relieved that the cat will be safe while she's away. Pt denies SI or thoughts of self harm currently. States she can't think of anything today aside from not wanting to fall over 2/2 the dizziness. she's been resting most of the day. Medication Compliance: Yes Review of Systems see above Mental Status Exam Mental Status Exam Narrative: Appearance: Grooming/hygiene wnl, just showered. wearing hospital kathy. good eye contact Attitude: Cooperative with interview. Speech: Fluent and wnl in regard to volume, tone, prosody Motor activity: Calm and without any tics, tremors or dyskinesias. Steady gait Mood: as noted above Affect: appropriate, reactive, brightens up appropriately Thought process: goal directed and without evidence of formal thought disorder Thought content: as noted above. Perception: does not appear to respond to internal stimuli Alert/oriented in all spheres Insight: currently intact Judgment: currently intact Diagnostics Vital Signs (24Hr): Vital Signs - 24 hr 11/30/24 19:12 11/30/24 21:03 12/01/24 11:08 Temperature 97.2 F 98.1 F Pulse Rate 82 79 Respiratory Rate 16 14 Blood Pressure 134/90 H 140/91 H 107/53 L Pulse Oximetry 100 94 Oxygen Delivery Method Room Air Room Air BMI result Body Mass Index 51.0 Labs 11/28/24 17:07 11/28/24 17:07 Medications Medications Current Medications Acetaminophen (Acetaminophen 325 Mg Tablet) 650 mg PO Q6H PRN PRN Reason: Headache/Pain, Scale 1-10 Last Admin: 12/01/24 11:09 Dose: 650 mg Al Hydroxide/Mg Hydroxide (Magnesium Hydrox/Alum Hydrox 30 Ml Oral.Susp) 30 ml PO Q6H PRN PRN Reason: Heartburn/Nausea Clonidine HCl (Clonidine Hcl 0.1 Mg Tablet) 0.1 mg PO BEDTIME VIC; Protocol Last Admin: 11/30/24 21:03 Dose: 0.1 mg Diphenhydramine HCl (Diphenhydramine Hcl 25 Mg Capsule) 50 mg PO Q6H PRN PRN Reason: Extrapyramidal Effects Last Admin: 11/30/24 21:05 Dose: 50 mg Hydrochlorothiazide (Hydrochlorothiazide 12.5 Mg Tablet) 12.5 mg PO DAILY VIC; Protocol Last Admin: 12/01/24 11:10 Dose: 12.5 mg Hydroxyzine HCl (Hydroxyzine Hcl 25 Mg Tablet) 25 mg PO Q6H PRN PRN Reason: mild anxiety Last Admin: 11/29/24 21:46 Dose: 25 mg Ibuprofen (Ibuprofen 800 Mg Tablet) 800 mg PO Q8H PRN PRN Reason: Menstrual Cramps Last Admin: 12/01/24 15:24 Dose: 800 mg Magnesium Hydroxide (Milk Of Magnesia 30 Ml Oral.Susp) 30 ml PO DAILY PRN PRN Reason: Constipation Nicotine Polacrilex (Nicotine Polacrilex 2 Mg Gum) 2 mg BUCCAL Q2H PRN PRN Reason: Nicotine Cravings Risperidone (Risperidone 0.5 Mg Tablet) 0.5 mg PO BEDTIME VIC Last Admin: 11/30/24 21:04 Dose: 0.5 mg Risperidone (Risperidone 0.25 Mg Tablet) 0.25 mg PO TID PRN PRN Reason: anxiety, mild agitation Risperidone (Risperidone 1 Mg Tablet) 1 mg PO BID PRN PRN Reason: severe agitation Last Admin: 11/30/24 21:05 Dose: 1 mg Trazodone HCl (Trazodone Hcl 50 Mg Tablet) 50 mg PO BEDTIME MRX1 PRN PRN Reason: Insomnia Last Admin: 11/30/24 21:05 Dose: 50 mg Allergies Allergies Allergy/AdvReac Type Severity Reaction Status Date / Time No Known Allergies Allergy Verified 11/28/24 15:15 Assessment & Plan Assessment & Plan (1) MDD (major depressive disorder), recurrent episode, moderate: Status: Acute Code(s): F33.1 - Major depressive disorder, recurrent, moderate Assessment and Plan: with premenstrual exacerbation (2) Borderline personality disorder: Status: Acute Code(s): F60.3 - Borderline personality disorder (3) PTSD (post-traumatic stress disorder): Status: Acute Code(s): F43.10 - Post-traumatic stress disorder, unspecified (4) HTN (hypertension): Status: Acute Code(s): I10 - Essential (primary) hypertension Plan Ms. Beverly is a 34 yo SF with h/o depression, anxiety, and multiple prior psychiatric admissions who was brought to the ED by ambulance after endorsing SI with a plan, subsequently admitted to for safety and stabilization. Plan: Admit to for safety and stabilization Legal Status: 12B- pt was going to sign CV but wanted to sign 3-day immediately after. 12B will 12/04 Request admission medical consult from hospitalist 15 min safety checks Vital signs per unit standard Milieu therapy Meds- Pt is agreeable w/ trying risperidone off-label to target anxiety/agitation/anger- 0.5 mg qhs, 0.25 mg bid prn for anxiety/mild agitation, 1 mg bid prn for severe agitation. Will add benadryl prn for EPS Will start clonidine 0.1 mg off-label for PTSD-related hyperarousal sx, including nightmares. Trazodone 50-100 mg qhs prn for insomnia Reviewed med r/b/a 11/30: Irritable, help seeking/rejecting but reported improved sleep/anxiety and denied nightmares last night after starting risperidone and clonidine. Denies med SE. Continue current med regimen/tx plan. Switched to 5 min safety checks due to inc'd thoughts of self harm yesterday but has not engaged in any self harming behaviors. On 12B, which expires Mon, 12/04 12/01: identified connection between menstrual cycle and increased anger/decreased frustration tolerance. Discussed tx options for managing worsening mood sx prior to her period. Had inc'd anger w/ prior fluoxetine trial. agreeable w/ starting gabapentin 100 mg tid, which can help w/ anxiety/irritability throughout her cycle. Can consider OCP trial. Ibuprofen and tylenol ordered prn for cramps, zofran 4 mg 1x dose ordered for nausea Patient educated on: diagnosis, medication risk/benefits, therapeutic strategies and medical condition Informed Consent: understands Reason for continued inpatient stay Substantial Risk for: med/psych decompensation Time Spent With Patient Time: Total time managing care of this patient today _30___ minutes.
[2024-12-01 19:40] VITALS: BP 107/59; PULSE 82; RESP 18; TEMP 36.2; O2SAT 99
[2024-12-02 01:12] VITALS: BP 102/76
[2024-12-02 07:31] VITALS: BP 108/63; PULSE 60; RESP 20; TEMP 36.6; O2SAT 99
--- NOTE | 2024-12-02 10:05 | HO.PSYCHPN ---
Subjective Subjective Date of Service: 12/02/24 Reason For Visit: Depression, SI Interim History: Patient reports she is depressed and remains with insomnia. She has trouble falling and staying asleep. She denies SI today. She is isolating in her room. Was napping today and said she was tired because she couldn't sleep well. Denies AVH. Tolerating medications well. Review of Systems Review of Systems Denies any shortness of breath, chest pain, palpitations, dizziness, lightheadedness, headaches, dysuria, abdominal pain or discomfort, nausea, vomiting or diarrhea. Denies chills or fever. Constitutional: Reports as per HPI Eyes: Reports as per HPI Reports as per HPI Cardiovascular: Reports as per HPI Respiratory: Reports as per HPI Gastrointestinal: Reports as per HPI Musculoskeletal: Reports as per HPI Skin/Breast: Reports as per HPI Reports as per HPI Psychiatric: Reports as per HPI Endocrine: Reports as per HPI Hematologic/Lymphatic: Reports as per HPI Allergic/Immunologic: Reports as per HPI Mental Status Exam Mental Status Exam Narrative: Appearance: Grooming/hygiene wnl, just showered. wearing hospital kathy. good eye contact Attitude: Cooperative with interview. Speech: Fluent and wnl in regard to volume, tone, prosody Motor activity: Calm and without any tics, tremors or dyskinesias. Steady gait Mood: as noted above Affect: appropriate, reactive, brightens up appropriately Thought process: goal directed and without evidence of formal thought disorder Thought content: as noted above. Perception: does not appear to respond to internal stimuli Alert/oriented in all spheres Insight: currently intact Judgment: currently intact Diagnostics Vital Signs (24Hr): Vital Signs - 24 hr 12/01/24 11:08 12/01/24 19:40 12/02/24 01:12 Temperature 98.1 F 97.2 F Pulse Rate 79 82 Respiratory Rate 14 18 Blood Pressure 107/53 L 107/59 L 102/76 Pulse Oximetry 94 99 Oxygen Delivery Method Room Air Room Air 12/02/24 07:31 Temperature 97.8 F Pulse Rate 60 Respiratory Rate 20 Blood Pressure 108/63 Pulse Oximetry 99 Oxygen Delivery Method Room Air BMI result Body Mass Index 51.0 Labs 11/28/24 17:07 11/28/24 17:07 Medications Medications Current Medications Acetaminophen (Acetaminophen 325 Mg Tablet) 650 mg PO Q6H PRN PRN Reason: Headache/Pain, Scale 1-10 Last Admin: 12/01/24 20:25 Dose: 650 mg Al Hydroxide/Mg Hydroxide (Magnesium Hydrox/Alum Hydrox 30 Ml Oral.Susp) 30 ml PO Q6H PRN PRN Reason: Heartburn/Nausea Clonidine HCl (Clonidine Hcl 0.1 Mg Tablet) 0.1 mg PO BEDTIME VIC; Protocol Last Admin: 12/01/24 20:24 Dose: 0.1 mg Diphenhydramine HCl (Diphenhydramine Hcl 25 Mg Capsule) 50 mg PO Q6H PRN PRN Reason: Extrapyramidal Effects Last Admin: 12/01/24 23:28 Dose: 50 mg Gabapentin (Gabapentin 100 Mg Capsule) 100 mg PO TID VIC Last Admin: 12/01/24 20:25 Dose: 100 mg Hydrochlorothiazide (Hydrochlorothiazide 12.5 Mg Tablet) 12.5 mg PO DAILY VIC; Protocol Last Admin: 12/01/24 11:10 Dose: 12.5 mg Hydroxyzine HCl (Hydroxyzine Hcl 25 Mg Tablet) 25 mg PO Q6H PRN PRN Reason: mild anxiety Last Admin: 12/01/24 21:49 Dose: 25 mg Ibuprofen (Ibuprofen 800 Mg Tablet) 800 mg PO Q6H PRN PRN Reason: Menstrual Cramps Last Admin: 12/02/24 05:44 Dose: 800 mg Magnesium Hydroxide (Milk Of Magnesia 30 Ml Oral.Susp) 30 ml PO DAILY PRN PRN Reason: Constipation Melatonin (Melatonin 3 Mg Tablet) 9 mg PO BEDTIME PRN PRN Reason: Insomnia- second line Last Admin: 12/02/24 01:29 Dose: 9 mg Nicotine Polacrilex (Nicotine Polacrilex 2 Mg Gum) 2 mg BUCCAL Q2H PRN PRN Reason: Nicotine Cravings Ondansetron HCl (Ondansetron Odt 4 Mg Tab.Rapdis) 4 mg TRANSLINGU Q6H PRN PRN Reason: Nausea and Vomiting Last Admin: 12/02/24 01:14 Dose: 4 mg Risperidone (Risperidone 0.5 Mg Tablet) 0.5 mg PO BEDTIME VIC Last Admin: 12/01/24 20:24 Dose: 0.5 mg Risperidone (Risperidone 0.25 Mg Tablet) 0.25 mg PO TID PRN PRN Reason: anxiety, mild agitation Last Admin: 12/01/24 23:15 Dose: 0.25 mg Risperidone (Risperidone 1 Mg Tablet) 1 mg PO BID PRN PRN Reason: severe agitation Last Admin: 12/01/24 20:25 Dose: 1 mg Trazodone HCl (Trazodone Hcl 50 Mg Tablet) 50 mg PO BEDTIME MRX1 PRN PRN Reason: Insomnia Last Admin: 12/01/24 21:49 Dose: 50 mg Allergies Allergies Allergy/AdvReac Type Severity Reaction Status Date / Time No Known Allergies Allergy Verified 11/28/24 15:15 Assessment & Plan Assessment & Plan (1) MDD (major depressive disorder), recurrent episode, moderate: Status: Acute Code(s): F33.1 - Major depressive disorder, recurrent, moderate Assessment and Plan: with premenstrual exacerbation (2) Borderline personality disorder: Status: Acute Code(s): F60.3 - Borderline personality disorder (3) PTSD (post-traumatic stress disorder): Status: Acute Code(s): F43.10 - Post-traumatic stress disorder, unspecified (4) HTN (hypertension): Status: Acute Code(s): I10 - Essential (primary) hypertension Plan Ms. Beverly is a 34 yo SF with h/o depression, anxiety, and multiple prior psychiatric admissions who was brought to the ED by ambulance after endorsing SI with a plan, subsequently admitted to for safety and stabilization. Plan: Admit to for safety and stabilization Legal Status: 12B- pt was going to sign CV but wanted to sign 3-day immediately after. 12B will Wed, 12/04 Request admission medical consult from hospitalist 15 min safety checks Vital signs per unit standard Milieu therapy Meds- Pt is agreeable w/ trying risperidone off-label to target anxiety/agitation/anger- 0.5 mg qhs, 0.25 mg bid prn for anxiety/mild agitation, 1 mg bid prn for severe agitation. Will add benadryl prn for EPS Will start clonidine 0.1 mg off-label for PTSD-related hyperarousal sx, including nightmares. Trazodone 50-100 mg qhs prn for insomnia Reviewed med r/b/a 11/30: Irritable, help seeking/rejecting but reported improved sleep/anxiety and denied nightmares last night after starting risperidone and clonidine. Denies med SE. Continue current med regimen/tx plan. Switched to 5 min safety checks due to inc'd thoughts of self harm yesterday but has not engaged in any self harming behaviors. On 12B, which expires Wed, 12/04 12/01: identified connection between menstrual cycle and increased anger/decreased frustration tolerance. Discussed tx options for managing worsening mood sx prior to her period. Had inc'd anger w/ prior fluoxetine trial. agreeable w/ starting gabapentin 100 mg tid, which can help w/ anxiety/irritability throughout her cycle. Can consider OCP trial. Ibuprofen and tylenol ordered prn for cramps, zofran 4 mg 1x dose ordered for nausea 12/02: increase Trazodone HS to 100 mg and continue current management and treatment plan. Reason for continued inpatient stay Substantial Risk for: harm to self, inability to function and rapid decompensation Time Spent With Patient Time: Total time managing care of this patient today ____ minutes.
[2024-12-02 12:35] VITALS: BP 120/77
[2024-12-02 19:30] VITALS: BP 130/82; PULSE 98; RESP 16; TEMP 36.4; O2SAT 98
[2024-12-03 08:55] VITALS: BP 112/66; PULSE 88; RESP 16; O2SAT 100
[2024-12-03 08:59] VITALS: BP 112/66
--- NOTE | 2024-12-03 09:33 | HO.PSYCHPN ---
Subjective Subjective Date of Service: 12/03/24 Reason For Visit: Depression, SI Interim History: Increase Trazodone didn't help with sleep. Discussed increasing activity during the day to help with sleep wake cycle and patient mentioned she was more active before she started her period. She has been in pain from menstrual cramps. Patient had a visit from her younger sister and said it went well. She says she feels safe and ready for possible discharge this week and that overall she feels improved. Denies AVH. Tolerating medications well. Review of Systems Review of Systems Denies any shortness of breath, chest pain, palpitations, dizziness, lightheadedness, headaches, dysuria, abdominal pain or discomfort, nausea, vomiting or diarrhea. Denies chills or fever. Constitutional: Reports as per HPI Eyes: Reports as per HPI Reports as per HPI Cardiovascular: Reports as per HPI Respiratory: Reports as per HPI Gastrointestinal: Reports as per HPI Musculoskeletal: Reports as per HPI Skin/Breast: Reports as per HPI Reports as per HPI Psychiatric: Reports as per HPI Endocrine: Reports as per HPI Hematologic/Lymphatic: Reports as per HPI Allergic/Immunologic: Reports as per HPI Mental Status Exam Mental Status Exam Narrative: Appearance: Grooming/hygiene wnl, just showered. wearing hospital kathy. good eye contact Attitude: Cooperative with interview. Speech: Fluent and wnl in regard to volume, tone, prosody Motor activity: Calm and without any tics, tremors or dyskinesias. Steady gait Mood: as noted above Affect: appropriate, reactive, brightens up appropriately Thought process: goal directed and without evidence of formal thought disorder Thought content: as noted above. Perception: does not appear to respond to internal stimuli Alert/oriented in all spheres Insight: currently intact Judgment: currently intact Diagnostics Vital Signs (24Hr): Vital Signs - 24 hr 12/02/24 12:35 12/02/24 19:30 12/03/24 08:55 Temperature 97.6 F Pulse Rate 98 88 Respiratory Rate 16 16 Blood Pressure 120/77 130/82 112/66 Pulse Oximetry 98 100 Oxygen Delivery Method Room Air Room Air 12/03/24 08:59 Temperature Pulse Rate Respiratory Rate Blood Pressure 112/66 Pulse Oximetry Oxygen Delivery Method BMI result Body Mass Index 51.0 Labs 11/28/24 17:07 12/03/24 08:40 Medications Medications Current Medications Acetaminophen (Acetaminophen 325 Mg Tablet) 650 mg PO Q6H PRN PRN Reason: Headache/Pain, Scale 1-10 Last Admin: 12/03/24 07:37 Dose: 650 mg Al Hydroxide/Mg Hydroxide (Magnesium Hydrox/Alum Hydrox 30 Ml Oral.Susp) 30 ml PO Q6H PRN PRN Reason: Heartburn/Nausea Clonidine HCl (Clonidine Hcl 0.1 Mg Tablet) 0.1 mg PO BEDTIME VIC; Protocol Last Admin: 12/02/24 19:53 Dose: 0.1 mg Diphenhydramine HCl (Diphenhydramine Hcl 25 Mg Capsule) 50 mg PO Q6H PRN PRN Reason: Extrapyramidal Effects Last Admin: 12/02/24 21:39 Dose: 50 mg Gabapentin (Gabapentin 100 Mg Capsule) 100 mg PO TID VIC Last Admin: 12/03/24 08:59 Dose: 100 mg Hydrochlorothiazide (Hydrochlorothiazide 12.5 Mg Tablet) 12.5 mg PO DAILY VIC; Protocol Last Admin: 12/03/24 08:59 Dose: 12.5 mg Hydroxyzine HCl (Hydroxyzine Hcl 25 Mg Tablet) 25 mg PO Q6H PRN PRN Reason: mild anxiety Last Admin: 12/01/24 21:49 Dose: 25 mg Ibuprofen (Ibuprofen 800 Mg Tablet) 800 mg PO Q6H PRN PRN Reason: Menstrual Cramps Last Admin: 12/03/24 07:37 Dose: 800 mg Magnesium Hydroxide (Milk Of Magnesia 30 Ml Oral.Susp) 30 ml PO DAILY PRN PRN Reason: Constipation Melatonin (Melatonin 3 Mg Tablet) 9 mg PO BEDTIME PRN PRN Reason: Insomnia- second line Last Admin: 12/02/24 19:55 Dose: 9 mg Nicotine Polacrilex (Nicotine Polacrilex 2 Mg Gum) 2 mg BUCCAL Q2H PRN PRN Reason: Nicotine Cravings Ondansetron HCl (Ondansetron Odt 4 Mg Tab.Rapdis) 4 mg TRANSLINGU Q6H PRN PRN Reason: Nausea and Vomiting Last Admin: 12/02/24 01:14 Dose: 4 mg Risperidone (Risperidone 0.5 Mg Tablet) 0.5 mg PO BEDTIME VIC Last Admin: 12/02/24 19:54 Dose: 0.5 mg Risperidone (Risperidone 0.25 Mg Tablet) 0.25 mg PO TID PRN PRN Reason: anxiety, mild agitation Last Admin: 12/01/24 23:15 Dose: 0.25 mg Risperidone (Risperidone 1 Mg Tablet) 1 mg PO BID PRN PRN Reason: severe agitation Last Admin: 12/01/24 20:25 Dose: 1 mg Trazodone HCl (Trazodone Hcl 50 Mg Tablet) 50 mg PO BEDTIME MRX1 PRN PRN Reason: Insomnia Last Admin: 12/02/24 21:40 Dose: 50 mg Trazodone HCl (Trazodone Hcl 100 Mg Tablet) 100 mg PO BEDTIME VIC Last Admin: 12/02/24 19:54 Dose: 100 mg Allergies Allergies Allergy/AdvReac Type Severity Reaction Status Date / Time No Known Allergies Allergy Verified 11/28/24 15:15 Assessment & Plan Assessment & Plan (1) MDD (major depressive disorder), recurrent episode, moderate: Status: Acute Code(s): F33.1 - Major depressive disorder, recurrent, moderate Assessment and Plan: with premenstrual exacerbation (2) Borderline personality disorder: Status: Acute Code(s): F60.3 - Borderline personality disorder (3) PTSD (post-traumatic stress disorder): Status: Acute Code(s): F43.10 - Post-traumatic stress disorder, unspecified (4) HTN (hypertension): Status: Acute Code(s): I10 - Essential (primary) hypertension Plan Ms. Beverly is a 34 yo SF with h/o depression, anxiety, and multiple prior psychiatric admissions who was brought to the ED by ambulance after endorsing SI with a plan, subsequently admitted to for safety and stabilization. Plan: Admit to for safety and stabilization Legal Status: 12B- pt was going to sign CV but wanted to sign 3-day immediately after. 12B will 12/04 Request admission medical consult from hospitalist 15 min safety checks Vital signs per unit standard Milieu therapy Meds- Pt is agreeable w/ trying risperidone off-label to target anxiety/agitation/anger- 0.5 mg qhs, 0.25 mg bid prn for anxiety/mild agitation, 1 mg bid prn for severe agitation. Will add benadryl prn for EPS Will start clonidine 0.1 mg off-label for PTSD-related hyperarousal sx, including nightmares. Trazodone 50-100 mg qhs prn for insomnia Reviewed med r/b/a 11/30: Irritable, help seeking/rejecting but reported improved sleep/anxiety and denied nightmares last night after starting risperidone and clonidine. Denies med SE. Continue current med regimen/tx plan. Switched to 5 min safety checks due to inc'd thoughts of self harm yesterday but has not engaged in any self harming behaviors. On 12B, which expires Wed, 12/04 12/01: identified connection between menstrual cycle and increased anger/decreased frustration tolerance. Discussed tx options for managing worsening mood sx prior to her period. Had inc'd anger w/ prior fluoxetine trial. agreeable w/ starting gabapentin 100 mg tid, which can help w/ anxiety/irritability throughout her cycle. Can consider OCP trial. Ibuprofen and tylenol ordered prn for cramps, zofran 4 mg 1x dose ordered for nausea 12/02: increase Trazodone HS to 100 mg and continue current management and treatment plan. 12/03: continue current management and treatment plan. Reason for continued inpatient stay Substantial Risk for: harm to self, inability to function and rapid decompensation Time Spent With Patient Time: Total time managing care of this patient today ____ minutes.
[2024-12-03 10:03] LABS: Hemoglobin A1C 115.9424 umol/L; Total Hemoglobin (HGBA1C) 3403.1274 umol/L
[2024-12-03 10:17] LABS: Alanine Aminotransferase 31 U/L (0-31); Albumin Level 4.1 g/dL (3.5-5.0); Alkaline Phosphatase 83 U/L (39-117); Anion Gap 15 (12-20); Aspartate Amino Transferase 25 U/L (5-31); Blood Urea Nitrogen 15 mg/dL (9-16); Calcium 9.2 mg/dL (8.4-10.2); Carbon Dioxide 23 mmol/L (22-29); Chloride 105 mmol/L (96-108); Cholesterol 169 mg/dL (<200); Creatinine Clr Calc Pharmacy 94.4; Estimated Glomerular Filt Rate > 60; HDL Cholesterol 39 mg/dL (>40); Potassium 3.9 mmol/L (3.3-5.1); Sodium 139 mmol/L (135-145); Total Protein 7.3 g/dL (6.5-8.0); Triglycerides 153 mg/dL (<150)
[2024-12-03 10:34] LABS: Free T4 (Free Thyroxine) 1.05 ng/dL (0.71-1.85); Thyroid Stimulating Hormone 1.73 uIU/mL (0.32-4.0)
[2024-12-03 10:47] LABS: Folate 7.7 ng/mL (> or = 4.0); Vitamin B12 507 pg/mL (200-900)
[2024-12-03 19:45] VITALS: BP 137/72; PULSE 86; RESP 18; TEMP 36.6; O2SAT 96
[2024-12-03 21:00] VITALS: BP 130/89
[2024-12-04 08:00] VITALS: BP 93/58; PULSE 63; RESP 14; TEMP 36.5; O2SAT 96
[2024-12-04 08:48] VITALS: BP 93/58
--- NOTE | 2024-12-04 13:19 | P.DS_ITS ---
DS: Providers Provider Date of Service: 12/04/24 Date of admission: 11/29/24 12:06 Date of discharge: 12/04/24 Primary care physician: [facility] Attending physician on admission: Carol Swanson Discharging clinician: Carol Swanson DS: Diagnosis Discharge Diagnosis (1) MDD (major depressive disorder), recurrent episode, moderate: Status: Acute (2) Borderline personality disorder: Status: Acute (3) PTSD (post-traumatic stress disorder): Status: Acute (4) HTN (hypertension): Status: Acute DS: Medications Discharge Medications Home Medications: Previous Rx's ?Medication ?Instructions ?Recorded diphenhydramine HCl 25 mg capsule See Rx Instructions .Route 12/04/24 .COMPLEX 30 days #120 caps gabapentin 100 mg capsule 100 mg PO TID 30 days #90 ca ps 12/04/24 ibuprofen 800 mg tablet 800 mg PO Q6H PRN Menstrual Cramps 12/04/24 60 days #30 tabs melatonin 3 mg tablet 9 mg (3 x 3 mg) PO BEDTIME P RN 12/04/24 Insomnia- second line #0 tabs risperidone 1 mg tablet See Rx Instructions .Route 1 .COMPLEX 30 days #30 tabs Mental Status Exam Mental Status Exam Narrative: Appearance: Wearing hospital kathy. Grooming/hygiene wnl. Good eye contact Attitude:Cooperative Speech: Fluent and wnl in regard to volume, tone, prosody Motor activity: Calm and without any tics, tremors or dyskinesias. Steady gait Mood: Better Affect: appropriate, reactive, generally bright Thought process: goal directed and without evidence of formal thought disorder Thought content: as noted above. Future oriented Perception: Denies AH/VH and does not appear to respond to internal stimuli Alert/oriented in all spheres Cognition grossly intact Insight: intact Judgment: intact Data Data Completed and Pending Completed studies during hospitalization [Text1]: 11/28/24 11/28/24 12/03/24 15:49 17:07 08:40 WBC 9.4 RBC 4.51 Hgb 12.5 Hct 36.0 L MCV 79.8 L MCH 27.7 MCHC 34.7 RDW 12.9 Plt Count 291 MPV 12.2 Immature Gran % (Auto) 0.3 Neut % (Auto) 68.1 Lymph % (Auto) 22.3 [place] % (Auto) 6.4 Eos % (Auto) 2.6 Baso % (Auto) 0.3 Lymph # (Auto) 2.1 [place] # (Auto) 0.6 Eos # (Auto) 0.2 Baso # (Auto) 0.0 Abs Immat Gran (auto) 0.03 Absolute Neuts (auto) 6.4 Absolute Nucleated RBC 0.000 Nucleated RBC % (auto) 0.0 Sodium 139 139 Potassium 4.0 3.9 Chloride 109 H 105 Carbon Dioxide 21 L 23 Anion Gap 13 15 BUN 8 L 15 Creatinine 0.84 1.04 Estim Creat Clear Calc 125.0 94.4 Estimated GFR > 60 > 60 Random Glucose 83 85 Estimat Average Glucose 105 Hemoglobin A1c % 5.3 Calcium 9.2 9.2 Total Bilirubin 0.5 0.3 AST 31 25 ALT 16 31 Alkaline Phosphatase 76 83 Total Protein 7.8 7.3 Albumin 4.4 4.1 Triglycerides 153 H Cholesterol 169 LDL Cholesterol, Calc 100 H HDL Cholesterol 39 L Vitamin B12 507 Folate 7.7 TSH 1.73 Free T4 1.05 Urine Color Yellow Urine Appearance Clear Urine pH 6.0 Ur Specific [place] 1.010 Urine Protein Negative Urine Glucose (UA) Negative Urine Ketones Negative Urine Blood Negative Urine Nitrite Negative Ur Leukocyte Esterase Small (1+) H Urine RBC 0-2 Urine WBC 6-10 H Ur Squamous Epith Cells 6-10 Urine Bacteria None Seen Hyaline Casts 0-2 Urine Test NEGATIVE Salicylates < 5.0 L Urine Opiates Screen Not Detected Ur Buprenorphine Scrn Not Detected Ur Oxycodone Screen Not Detected Urine Methadone Screen Not Detected Urine Fentanyl Screen Not Detected Acetaminophen < 3 Ur Barbiturates Screen Not Detected Ur Phencyclidine Scrn Not Detected Ur Amphetamines Screen Not Detected U Benzodiazepines Scrn Not Detected Urine Cocaine Screen Not Detected U Marijuana (THC) Screen Not Detected Ethyl Alcohol 11 Cardiology Testing EKG on 11/29/24: Reason for Exam: qtc check Test Reason : qtc check Blood Pressure : */* mmHG Vent. Rate : 71 BPM Atrial Rate : 71 BPM P-R Int : 166 ms QRS Dur : 70 ms QT Int : 382 ms P-R-T Axes : 58 46 34 degrees QTcB Int : 415 ms Normal sinus rhythm Normal ECG No previous ECGs available DS: Summary Hospital Course Hospital Course: Ms. Beverly is a 34 yo SF with h/o depression, anxiety, and multiple prior psychiatric admissions who was brought to the ED by ambulance after endorsing SI with a plan, subsequently admitted to for safety and stabilization. On admission, pt reported a life long h/o depression. She was hospitalized 2x at [facility] from July-August for depression, SI and HI after she had major stressors with her health insurance (states that the words [employer] and [employer] are major triggers for her). Pt was admitted on a section 12B. She had agreed to sign a CV if she could sign a 3-day right after. She endorsed chronic SI and previous self harm by cutting, scratching, slamming her head into the wall, hitting herself with objects, punching/stabbing/choking herself, and sticking objects into sockets. She reported that she used to wet the bed and tried to harm herself by sitting in the acidic urine. She was placed on 5 minute safety checks initially and then switched to 15 min safety checks after demonstrating that she could maintain safe behaviors. She was not taking any medications prior to admission and reported that she doesn't currently have health insurance. She agreed to try risperidone 0.5 mg qhs off-label for anxious ruminations, irritability, mood lability and insomnia. She was started on trazodone 50-100 mg qhs prn for insomnia and clonidine 0.1 mg qhs. She didn't feel like these medications helped and they were discontinued on the day of discharge to simplify her med regimen. She reported that Benadryl was the only thing that helped her sleep. She took prn Vistaril 25 mg with some benefit in reducing anxiety. Pt started her menses on 12/01 and endorses severe cramping, nausea, dizziness, fatigue, heavy bleeding and increased anger for a day or so before her period, which typically improves around day 3 of her period. She reported that her periods are regular and she experiences these symptoms every month. She said her fast food sales assistant may have considered starting her on control to manage these symptoms but her mom was opposed to it since pt wasn't sexually active. Pt was open to starting an OCP to regulate her periods. This principal technical writer recommended that she get established with a PCP or chief operator reformer to start her on control so that they can monitor for any adverse effects. This principal technical writer started pt on gabapentin 100 mg tid for off-label tx of anxiety, which can help reduce the increased irritability around her period as well. I reviewed medication risks/benefits/alternatives with the patient and she agreed with the above treatment plan. I sent her prescriptions to [facility] for a more affordable [id number] cost and printed [employer] coupons for gabapentin and risperidone. Pt spent most of her time in her room but socialized with her roommate. She reported overall improvement in anxiety, depression and irritability and denied SI/thoughts of self harm when this principal technical writer met with her on 12/01 and on the day of discharge. She is future oriented, looking forward to returning home with her cat, who is very therapeutic for her. Status at Discharge Functional status at discharge: independent ambulation Overall status at discharge: patient is back to baseline Time Spent with Patient Time attestation: Total time managing care of this patient today _45___ minutes. Time spent: Greater than 30 minutes Discharge Plan Discharge Anticipated Discharge Date/Time: 12/04/24 10:30 Patient Disposition: Home, Self-Care Discharge Diagnosis: Major depressive disorder, recurrent, moderate with premenstrual exacerbation PTSD Borderline personality traits Hypertension Referrals: Therapy & Psychiatry [Other] - 1 Week Referral Note: *You can present to the clinic above, Wednesday through Wednesday during the hours of 10am and 12pm, in order to obtain outpatient mental health providers. Therapy & Psychiatry [Other] - 1 Week Referral Note: *You can present to the clinic above, Wednesday through Wednesday during the hours of 8am and 8pm, in order to obtain outpatient mental health providers. [facility] [Primary Care Provider, Primary Care] - 1 Week Referral Note: 12-04-24 Please contact your primary care provider within 7- 10 days of discharge to schedule your follow up appt. No release on file. Discharge Medications: New ibuprofen 800 mg Tablet 800 mg PO Q6H PRN (Reason: Menstrual Cramps) 60 Days Qty: 30 0RF gabapentin 100 mg Capsule 100 mg PO TID 30 Days Qty: 90 0RF diphenhydramine HCl 25 mg capsule See Rx Instructions .ROUTE .COMPLEX 30 Days Qty: 120 0RF Rx Instructions: Take 1 cap po bid prn for anxiety. Take 1-2 caps po qhs prn for insomnia melatonin 3 mg Tablet 9 mg PO BEDTIME PRN (Reason: Insomnia- second line) Qty: 0 0RF risperidone 1 mg tablet See Rx Instructions .ROUTE .COMPLEX 30 Days Qty: 30 0RF Rx Instructions: Take 1/2 tab po qhs. Take 1/2 tab po qd prn for agitation Discharge Orders: Discharge Order (Routine); Ordered 12/04/24 Ordered By: Carol Swanson Diet: Regular diet Activity on Discharge: No Restrictions Stand Alone Forms: Patient Portal Discharge page, Community Support Print Language: Uzbek Care Plan Goals: Maintain safe behaviors Practice coping skills Take medications as prescribed Maintain regular follow-ups with your outpatient providers Health Concerns: Mood stability and behaviors Premenstrual exacerbation of mood symptoms Plan of Treatment: Follow up with your psychiatric provider, PCP, and other outpatient providers Take your medication as prescribed *I recommend that you speak with your PCP or deployment specialist about starting control to help reduce your PMS symptoms. Assessment: Risk assessment at the time of discharge: Patient was interviewed on the day of discharge and found to be fully oriented She has a chronic history of SI but denies SI or thoughts of self harm today. She did not engage in self harm prior to admission and sought help. She denies any violent ideation Pt has improved insight and judgment and plans to continue treatment Pt is not at high risk of harm to self and is at low risk of harm to others. She has a safety plan that includes presenting to the closest ER or calling 911 if feeling unsafe. Pt has been observed closely by unit staff and has not engaged in any behaviors that suggest dangerous to self or others and has demonstrated appropriate behaviors and impulse control. Discharge Date/Time: 12/04/24 10:49
== END 2024-12-04 10:49 | disposition home or self-care (01) | DRG 751 ==
LOC: HO.ED 21:49 → HO.PADLT16 11-29 12:06
PROVIDERS: Physician Assistant Medical; Admitting Provider Psychiatry & Neurology Psychiatry; Emergency Provider Emergency Medicine; PCP Dentist General Practice; Visit Provider Psychiatry & Neurology Psychiatry
DX: F33.1 Major depressive disorder, recurrent, moderate (principal); R45.851 Suicidal ideations; Z68.43 Body mass index [BMI] 50.0-59.9, adult; F43.10 Post-traumatic stress disorder, unspecified; F60.3 Borderline personality disorder; N94.3 Premenstrual tension syndrome; I10 Essential (primary) hypertension; E66.01 Morbid (severe) obesity due to excess calories; Z71.3 Dietary counseling and surveillance; Z56.0 Unemployment, unspecified; Z79.899 Other long term (current) drug therapy
CPT/HCPCS: 36415; 80053; 80061; 80143; 80179; 80307; 81001; 81003; 81025; 82607; 82746; 83036; 84439; 84443; 85025; 93005; 99285; S9485

== ENCOUNTER → 2024-11-29 08:13 | Outpatient (BNV) | payer MEDICAID, SELFPAY | PROVIDERS: Admitting Provider Psychiatry & Neurology Psychiatry; Emergency Provider Emergency Medicine; PCP Dentist General Practice; Visit Provider Internal Medicine Cardiovascular Disease | DX: Z13.6 Encounter for screening for cardiovascular disorders (principal) | CPT/HCPCS: 93010 ==

== ENCOUNTER → 2024-11-29 12:06 | Outpatient (BNV) | payer MEDICAID, SELFPAY | PROVIDERS: Admitting Provider Psychiatry & Neurology Psychiatry; Emergency Provider Emergency Medicine; PCP Dentist General Practice; Visit Provider Nurse Practitioner Family | DX: E66.01 Morbid (severe) obesity due to excess calories (principal); I10 Essential (primary) hypertension | CPT/HCPCS: 99221 ==

== ENCOUNTER → 2024-11-29 12:06 | Outpatient (BNV) | payer OTHER, SELFPAY | PROVIDERS: Admitting Provider Psychiatry & Neurology Psychiatry; Emergency Provider Emergency Medicine; PCP Dentist General Practice; Visit Provider Psychiatry & Neurology Psychiatry | DX: F33.1 Major depressive disorder, recurrent, moderate (principal); F60.3 Borderline personality disorder; F43.10 Post-traumatic stress disorder, unspecified; I10 Essential (primary) hypertension | CPT/HCPCS: 99232 ==

== ENCOUNTER 2025-01-20 18:46 | Inpatient (IN) | payer OTHER, SELFPAY ==
[2025-01-20 18:59] VITALS: BP 160/100; PULSE 100; O2SAT 99; BMI 25.0
[2025-01-20 19:34] VITALS: BP 133/80; PULSE 75; RESP 16; TEMP 36.4; O2SAT 100
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
[2025-01-20 20:14] LABS: Appearance Urine Clear; Glucose Urine UA Negative (Negative); PH 5.5 (5.0-9.0); Specific Gravity - Urine 1.015 (1.005-1.025); UPreg QC Valid YES
[2025-01-20 20:22] LABS: Hematocrit 37.3 % (37.0-47.0); Hemoglobin 12.8 g/dl (12.0-16.0); Imm Gran Abs Auto 0.04 X10*3/uL (0.00-0.03); Imm Gran Pct Auto 0.4 % (0.0-0.4); Lymphocytes Absolute Auto 2.0 X10*3/uL (1.2-4.9); MANUAL DIFF FLAG NO; Mean Corpuscular HGB Conc 34.3 g/dl (31.0-35.0); Mean Corpuscular Hemoglobin 27.8 pg (27.0-33.0); Mean Corpuscular Volume 80.9 fL (80.0-98.0); NRBC Abs Auto 0.000 X10*3/uL (0.0-0.012); NRBC Pct Auto 0.0 /100WBC (0.0-0.2); Platelet Count 317 X10*3/uL (160-400); Red Blood Count 4.61 X10*6/uL (4.20-5.50); White Blood Count 10.0 X10*3/uL (4.8-10.8)
[2025-01-20 20:24] LABS: Cannabinoid Screen Urine Not Detected (Not Detect)
[2025-01-20 20:36] LABS: Alanine Aminotransferase 21 U/L (0-31); Albumin Level 4.3 g/dL (3.5-5.0); Alkaline Phosphatase 91 U/L (39-117); Anion Gap 13 (12-20); Aspartate Amino Transferase 22 U/L (5-31); Blood Urea Nitrogen 8 mg/dL (9-16); Calcium 9.4 mg/dL (8.4-10.2); Carbon Dioxide 24 mmol/L (22-29); Chloride 108 mmol/L (96-108); Creatinine Clr Calc Pharmacy 85.3; Estimated Glomerular Filt Rate > 60; Potassium 3.5 mmol/L (3.3-5.1); Sodium 141 mmol/L (135-145); Total Protein 7.7 g/dL (6.5-8.0)
[2025-01-20 20:37] LABS: Acetaminophen LAB < 3 mcg/mL (<30); Salicylate < 5.0 mg/dL (15-30)
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
--- OUTSIDE RECORDS SUMMARY | 2025-01-20 21:24 | XMS_ITS | Clinical Summary ---
Author Organization [email or web address] Address [address] [place] [address] Care Team Providers Care B2B Account Executive Name Role Phone Unavailable Primary Care Provider Unavailabl e Encounters Date Type Department Care Team Description 11/17/2024 Population Health Risk Score [facility] (C3) Department [address] [address] Provider, Population Health Generic from [...] 2021 HPV/Cotest 2021 COVID-19 Vaccine (1 - 2024-2 6 season) 2024 Influenza Vaccine (#1) 2024 DTaP/Tdap/Td [...]
--- NOTE | 2025-01-20 22:51 | PC.NURSE ---
Patient became extremely emotional and tearful after learning CARE Team is not available currently to meet. Went into room, rocking back and forth on knees, and sobbing uncontrollably. MD Mayfield made aware, awaiting orders...
--- NOTE | 2025-01-20 23:40 | PC.NURSE ---
Patient still sobbing uncontrollably. Began to hyperventilate and vomit, filled 1.5 emesis bags. Required change of hospital attire. Not listening to verbal redirection or requests from staff. [facility]field contacted, awaiting orders...
--- NOTE | 2025-01-20 23:56 | PC.NURSE ---
Patient given PO 1mg Ativan and ODT Zofran.
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
--- NOTE | 2025-01-21 06:44 | MHC.EDTECH ---
Pts vitals were not done this morning due to the pt finally falling asleep at 3 in the monring from her sobbing since 11pm. Rn aware
--- NOTE | 2025-01-21 07:29 | PC.NURSE ---
Assumed care, report received. Pt is currently sleeping. safety is maintained.
[2025-01-21 13:59] VITALS: BP 139/83; PULSE 83; RESP 18; O2SAT 100
--- NOTE | 2025-01-21 14:05 | PHA.MEDREC ---
Addendum entered by Avril Zaragoza RPh 01/21/25 14:14: REVIEWED BY PHARMACIST Original Note: Pharmacy Consult ? Medication Reconciliation Pharmacy has completed the medication reconciliation. Confirmed medication list with attending nurse, Ese Sanchez, that patient has not been taking any medications at home and did not know what she last took any medications at home.
[2025-01-21 20:25] VITALS: BP 131/77; PULSE 82; RESP 18; O2SAT 100
--- NOTE | 2025-01-21 22:22 | PC.NURSE ---
Pt has remained calm and cooperative. She has spent most of her time drawing and coloring, listening to music. She came out and talked to staff about concerts and music she enjoys.
--- NOTE | 2025-01-22 07:24 | PC.NURSE ---
Assumed care, report received. Pt is currently sleeping, safety is maintained.
[2025-01-22 16:14] VITALS: BP 132/76; PULSE 86; RESP 18; TEMP 36.8; O2SAT 97
[2025-01-22 17:45] VITALS: BP 138/91; PULSE 80; RESP 16; TEMP 36.8; O2SAT 96
[2025-01-22 17:46] VITALS: BMI 43.3
--- NOTE | 2025-01-22 18:20 | PC.NURSE ---
Pt declined flu shot saying she was previously immunized earlier this season
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
[2025-01-22 20:00] VITALS: BP 122/84; PULSE 93; RESP 16; TEMP 36.3; O2SAT 99
[2025-01-22] MEDS: Ammonium Lactate 12 % Cream 140 GM TUBE 1 APPL TOPICAL (22:30)
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
[2025-01-23] MEDS: Ammonium Lactate 12 % Cream 140 GM TUBE 1 APPL TOPICAL ×2 (09:35→22:15)
--- NOTE | 2025-01-23 14:18 | MHC.CLN ---
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
[2025-01-24] MEDS: Ammonium Lactate 12 % Cream 140 GM TUBE 1 APPL TOPICAL ×2 (08:11→20:34)
[2025-01-24 08:20] VITALS: BP 119/70; PULSE 73; RESP 20; TEMP 37.7; O2SAT 98
--- NOTE | 2025-01-24 09:34 | HO.PSYCHPN ---
Subjective Subjective Date of Service: 01/24/25 Reason For Visit: Crisis Subjective Notes: 3 Day Interim History: Keeping to self. Laying in bed listening to music. Patient reports feeling irritated today because every time I try to fall asleep someone wants to talk to me . Patient reports poor sleep last night d/t not being able to listen to music , which she reports doing at home. Focused on discharge; pt stated, I was never feeling suicidal when I came here. I was the night before coming here. I'm just focused on getting back to my cat and finding a new job . denies SI/HI/VH/AH. 3 day notice up on 01/25/25. Medication Compliance: Yes Side effects from medications: No Attending Groups: No Mental Status Exam Mental Status Exam Narrative: Pt is alert and oriented; behavior is cooperative and calm; dressed in casual attire; mood is described as irritated ; eye contact appropriate; Speech is normal rate, volume and not pressured; thought process is organized, future oriented; Thought content is on discharge; denies SI/HI/VH/AH. Diagnostics Vital Signs (24Hr): Vital Signs - 24 hr 01/24/25 08:20 Temperature 99.9 F Pulse Rate 73 Respiratory Rate 20 Blood Pressure 119/70 Pulse Oximetry 98 Oxygen Delivery Method Room Air BMI result Body Mass Index 43.3 Labs 01/20/25 20:17 01/20/25 20:17 Medications Medications Current Medications Acetaminophen (Acetaminophen 325 Mg Tablet) 650 mg PO Q6H PRN PRN Reason: Headache/Pain, Scale 1-10 Al Hydroxide/Mg Hydroxide (Magnesium Hydrox/Alum Hydrox 30 Ml Oral.Susp) 30 ml PO Q6H PRN PRN Reason: Heartburn/Nausea Aripiprazole (Aripiprazole 5 Mg Tablet) 5 mg PO BEDTIME VIC Last Admin: 01/23/25 22:14 Dose: 5 mg Diphenhydramine HCl (Diphenhydramine Hcl 25 Mg Capsule) 50 mg PO BEDTIME MRX1 PRN PRN Reason: Insomnia Last Admin: 01/23/25 22:14 Dose: 50 mg Hydroxyzine HCl (Hydroxyzine Hcl 25 Mg Tablet) 25 mg PO Q6H PRN PRN Reason: mild anxiety Last Admin: 01/23/25 12:27 Dose: 25 mg Lactic Acid (Ammonium Lactate 12 % Cream 140 Gm Tube) 1 appl TOPICAL BID VIC; Protocol Last Admin: 01/24/25 08:11 Dose: 1 appl Magnesium Hydroxide (Milk Of Magnesia 30 Ml Oral.Susp) 30 ml PO DAILY PRN PRN Reason: Constipation Nicotine Polacrilex (Nicotine Polacrilex 2 Mg Gum) 4 mg BUCCAL Q2H PRN PRN Reason: Nicotine Cravings Olanzapine (Olanzapine 5 Mg Tablet) 5 mg PO Q4H PRN PRN Reason: agitation Trazodone HCl (Trazodone Hcl 50 Mg Tablet) 50 mg PO BEDTIME MRX1 PRN PRN Reason: Insomnia Last Admin: 01/23/25 22:14 Dose: 50 mg Allergies Allergies Allergy/AdvReac Type Severity Reaction Status Date / Time No Known Allergies Allergy Verified 01/20/25 19:03 Assessment & Plan Assessment & Plan (1) MDD (major depressive disorder), recurrent episode, moderate: Status: Acute Code(s): F33.1 - Major depressive disorder, recurrent, moderate (2) PTSD (post-traumatic stress disorder): Status: Acute Code(s): F43.10 - Post-traumatic stress disorder, unspecified (3) Borderline personality disorder: Status: Acute Code(s): F60.3 - Borderline personality disorder Plan Patient is a 35-year-old female with history of MDD, PTSD and borderline personality disorder who presented to ER via ambulance due to suicidal ideation with a plan to drive off or jump from a bridge secondary to increased depression and medication/treatment nonadherance. Plan: day notice 15 minute safety checks Obtain collateral Continue home medications Start: Abilify 5mg PO bedtime Encourage groups Referral to outpatient psychiatric providers ? Referral to [facility] Discharge planning 01/24: Keeping to self. Laying in bed listening to music. Patient reports feeling irritated today because every time I try to fall asleep someone wants to talk to me . Patient reports poor sleep last night d/t not being able to listen to music , which she reports doing at home. Focused on discharge; pt stated, I was never feeling suicidal when I came here. I was the night before coming here. I'm just focused on getting back to my cat and finding a new job . denies SI/HI/VH/AH. 3 day notice up on 01/25/25. Patient educated on: diagnosis and medication risk/benefits Reason for continued inpatient stay Substantial Risk for: stable for discharge Time Spent With Patient Time: Total time managing care of this patient today _20___ minutes.
[2025-01-24 20:00] VITALS: BP 144/94; PULSE 88; RESP 16; TEMP 36.3; O2SAT 98
[2025-01-25 07:40] VITALS: BP 126/71; PULSE 67; RESP 14; TEMP 36.7; O2SAT 98
[2025-01-25] MEDS: Ammonium Lactate 12 % Cream 140 GM TUBE 1 APPL TOPICAL (09:44)
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
== END 2025-01-25 10:48 | disposition home or self-care (01) | DRG 751 ==
LOC: HO.ED 21:21 → HO.PADLT16 01-22 15:27
PROVIDERS: Admitting Provider Registered Nurse; Emergency Provider Emergency Medicine Emergency Medical Services; Responsible Provider Registered Nurse; Visit Provider Psychiatry & Neurology Psychiatry
DX: F33.1 Major depressive disorder, recurrent, moderate (principal); R45.851 Suicidal ideations; E66.01 Morbid (severe) obesity due to excess calories; F43.10 Post-traumatic stress disorder, unspecified; F60.3 Borderline personality disorder; I10 Essential (primary) hypertension; Z68.41 Body mass index [BMI] 40.0-44.9, adult; Z71.3 Dietary counseling and surveillance; Z79.899 Other long term (current) drug therapy
CPT/HCPCS: 36415; 80053; 80143; 80179; 80307; 81001; 81025; 85025; 99285; S9485

== ENCOUNTER → 2025-01-22 15:14 | Outpatient (BNV) | payer MEDICAID, SELFPAY | PROVIDERS: Admitting Provider Registered Nurse; Emergency Provider Emergency Medicine Emergency Medical Services; Responsible Provider Registered Nurse; Visit Provider Nurse Practitioner Family | DX: I10 Essential (primary) hypertension (principal) | CPT/HCPCS: 99221 ==

== ENCOUNTER → 2025-01-22 15:14 | Outpatient (BNV) | payer OTHER, SELFPAY | PROVIDERS: Admitting Provider Registered Nurse; Emergency Provider Emergency Medicine Emergency Medical Services; Responsible Provider Registered Nurse; Visit Provider Registered Nurse | DX: F33.1 Major depressive disorder, recurrent, moderate (principal); F60.3 Borderline personality disorder; F43.11 Post-traumatic stress disorder, acute | CPT/HCPCS: 99233 ==